=== PATIENT | male | born 1955 | race Caucasian/White ===

== ENCOUNTER 2016-04-26 09:09 | Emergency (ER) | payer BC ==
[~2016-04-26] VITALS: Ht 177.8 cm; Wt 120.0 kg
[~2016-04-26 09:09] MED LIST: BENADRYL 50MG C50 MG OR; CRESTOR40 MG PO; HYDROCHLOROT12.5 MG PO; LIPITOR40 MG OR; LISINOPRIL20 MG PO; MEDDOSEPAK OR; TAGAMET300 MG OR; ZESTORETIC1 TA1 OR; ZETIA10 MG OR
[2016-04-26 09:48] LABS: HEMATOCRIT 43.1 % (39.0-50.0); HEMOGLOBIN 15.7 g/dl (14.0-18.0); IMMATURE GRANULOCYTES 0.5 % (0.0-1.0); MEAN CELL VOLUME 89.6 fL CALC (80.0-100.0); MEAN CORPUSCULAR HGB 32.6 pG CALC (26.0-32.0); MEAN CORPUSCULAR HGB CONC 36.4 g/L CALC (32.0-36.0); NEUT# 3.58 thou/uL (1.82-7.42); RED BLOOD COUNT 4.81 mill/uL (4.70-6.10); RED CELL DISTRI WIDTH 12.2 % (11.5-15.5)
[2016-04-26 09:59] LABS: ANION GAP 17 (6-22 (CALC)); BUN 19 mg/dL (8-23); BUN/CREATININE RATIO 27 (12-20 (CALC)); CALCIUM 9.6 mg/dL (8.4-10.2); CARBON DIOXIDE 25 mmol/l (22-30); CHLORIDE 100 mmol/l (95-108); CREATININE 0.7 mg/dL (0.7-1.3); GFR > 60 ML/MIN (>=60 (CALC)); GFR FOR AFR.AMER. > 60 ML/MIN (>=60 (CALC)); GLUCOSE 116 mg/dL (82-115); POTASSIUM 3.7 mmol/l (3.5-5.1); SODIUM 139 mmol/l (137-146)
[2016-04-26 10:38] LABS: ACT PARTIAL THROMBO TIME 25.8 SECONDS (20.0-32.5); PROTHROMBIN TIME 10.8 SECONDS (9.0-12.5)
[2016-04-26 11:52] VITALS: BP 121/77
== END 2016-04-26 11:53 | DRG 914 ==
LOC: ED 09:09
PROVIDERS: Emergency Medicine
DX: S68.621A Partial traumatic transphalangeal amputation of left index finger, initial encounter (principal); S68.623A Partial traumatic transphalangeal amputation of left middle finger, initial encounter; W30.89XA Contact with other specified agricultural machinery, initial encounter; Y93.89 Activity, other specified; Y92.73 Farm field as the place of occurrence of the external cause

== ENCOUNTER 2016-05-02 19:32 | Emergency (ER) | payer BC ==
[~2016-05-02] VITALS: Ht 177.8 cm; Wt 118.2 kg
[2016-05-02 22:27] VITALS: BP 173/98
== END 2016-05-02 22:28 | disposition short-term general hospital (02) | DRG 605 ==
LOC: ED 19:32
DX: S00.83XA Contusion of other part of head, initial encounter (principal); S12.000A Unspecified displaced fracture of first cervical vertebra, initial encounter for closed fracture; W18.31XA Fall on same level due to stepping on an object, initial encounter; Y92.009 Unspecified place in unspecified non-institutional (private) residence as the place of occurrence of the external cause